=== PATIENT | female | born 1940 | race Caucasian/White ===

== ENCOUNTER → 2018-05-16 | Outpatient (CLI) | payer OTHER ==
[2018-05-16 11:55] LABS: BASOPHILS ABSOLUTE AUTO 0.03 K/mm3 (0.00-0.23); BASOPHILS PERCENT AUTO 0 % (0-2); EOSINOPHILS PERCENT AUTO 0 % (0-6); Hematocrit 40.5 % (33.0-51.0); Hemoglobin 14.1 g/dL (11.5-16.0); IMMATURE GRAN ABSOLUTE AUTO 0.01 K/mm3 (0.00-0.10); IMMATURE GRAN PERCENT AUTO 0 % (0-1); LYMPHOCYTES ABSOLUTE AUTO 1.37 K/mm3 (0.84-5.20); LYMPHOCYTES PERCENT AUTO 19 % (21-46); MONOCYTES ABSOLUTE AUTO 0.65 K/mm3 (0.16-1.47); MONOCYTES PERCENT AUTO 9 % (4-13); Mean Corpuscular HGB 32.2 pg (26.0-34.0); Mean Corpuscular HGB Conc 34.8 g/dL (31.5-36.5); Mean Corpuscular Volume 93 fL (80-100); Mean Platelet Volume 8.2 fL (9.1-12.4); NEUTROPHILS ABSOLUTE AUTO 5.09 K/mm3 (1.96-9.15); NEUTROPHILS PERCENT AUTO 71 % (41-73); Platelet Count 251 K/mm3 (150-400); RDW Coefficient Variation 12.8 % (11.7-14.2); RDW Standard Deviation 43.5 fL (35.1-46.3); Red Blood Cell Count 4.38 M/mm3 (3.80-5.20); White Blood Cell Count 7.15 K/mm3 (4.00-11.30)
[2018-05-16 12:08] LABS: Anion Gap 8 mmol/L (6-16); Blood Urea Nitrogen 13 mg/dL (8-24); Bun/Creatinine Ratio 14.9 (12.0-20.0); CO2, Blood 28 mmol/L (21-32); Calcium, Blood 9.5 mg/dL (8.5-10.1); Chloride, Blood 94 mmol/L (98-108); Creatinine, Blood 0.87 mg/dL (0.40-1.00); Glomerular Filtration Rate >60 (60-); Glucose, Blood 96 mg/dL (70-99); Potassium, Blood 4.2 mmol/L (3.5-5.5); Sodium, Blood 130 mmol/L (136-145)
== END ==
LOC: LAB SHORT 11:52 → LAB EV 11:52
PROVIDERS: Nurse Practitioner
DX: J98.8 Other specified respiratory disorders (principal)
CPT/HCPCS: 80048; 85025

== ENCOUNTER → 2018-07-10 | Outpatient (CLI) | payer OTHER | END | disposition home or self-care (01) | LOC: LAB 07:10 → LAB SHORT 07:10 → LAB FUT 07-08 12:50 → EDSTATUS 07-08 12:50 | DX: R91.8 Other nonspecific abnormal finding of lung field (principal) | CPT/HCPCS: 87070 ==

== ENCOUNTER 2020-07-25 11:33 | Day surgery (SDC) | payer OTHER ==
[~2020-07-25] VITALS: Ht 162.6 cm; Wt 58.2 kg
--- NOTE | 2020-07-25 12:44 | NUR ---
07/25/20 1244 Cornelio Noel History, Chart, Medications and Allergies reviewed before start of procedure.MONITOR INTACT WITH CONTINUOUS PULSE OXIMETRY AND INTERMITTENT BP.3-LEAD EKG REVIEWED WITH PHYSICIAN PRIOR TO START OF PROCEDURE.O2 VIA N/C INTACT THROUGHOUT SEDATION/PROCEDURE. Patient confirms NPO status and agrees with scheduled surgery.
--- NOTE | 2020-07-25 14:15 | NUR ---
TOOK REPORT FROM [facility]. PT WITH NO C/0 PAIN, NAUSEA. NON PRODUCTIVE COUGH. WILL CONTINUE TO MONITOR FOR 4 HOURS ORDERED BY
--- NOTE | 2020-07-25 14:25 | NUR ---
DR. FALCON SPEAKING WITH PT VIA PHONE.
--- NOTE | 2020-07-25 15:56 | NUR ---
SPOKE WITH DR. FALCON AND DUE TO THE PT DOING SO WELL, VITAL SIGNS STABLE, NON PRODUCTIVE COUGH, DR. FALCON OKAYED D/CING THE PT AT THIS TIME.
--- NOTE | 2020-07-25 16:16 | NUR ---
CHEST XRAY TAKEN PRIOR TO DC.
--- NOTE | 2020-07-25 16:17 | NUR ---
Patient up to Ambulate independently. Gait steady. Discharge instructions reviewed with patient. Patient verbalizes understanding. Copy given to patient to take home. Discharged via wheelchair to private car for ride home.
== END 2020-07-25 22:54 | disposition home or self-care (01) ==
LOC: ORSCMMR 11:33 → ORD 12:30 → ORSCMMR 22:54
PROVIDERS: Internal Medicine Pulmonary Disease
PROC: 0B9D8ZX Drainage of Right Middle Lung Lobe, Via Natural or Artificial Opening Endoscopic, Diagnostic (ICD-10-PCS; principal; 2020-07-25 12:30)
DX: R91.8 Other nonspecific abnormal finding of lung field (principal); J47.9 Bronchiectasis, uncomplicated; A31.0 Pulmonary mycobacterial infection; Z87.891 Personal history of nicotine dependence; Z79.899 Other long term (current) drug therapy
CPT/HCPCS: 71045; 87070; 87205; J2001; J2250; J3010; J7120

== ENCOUNTER → 2020-08-17 | Outpatient (CLI) | payer OTHER ==
[2020-08-17 10:35] LABS: Albumin, Blood 3.7 g/dL (3.4-5.0); Bilirubin, Direct 0.1 mg/dL (0.0-0.3); Bilirubin, Indirect 0.3 mg/dL (0.1-0.7); Bilirubin, Total 0.4 mg/dL (0.1-1.0); Globulin, Blood 3.8 g/dL (2.2-4.0); Total Protein, Blood 7.5 g/dL (6.4-8.2)
== END | disposition home or self-care (01) ==
LOC: OLS 08:46 → LAB SHORT 08:46
PROVIDERS: Internal Medicine Infectious Disease
DX: A31.0 Pulmonary mycobacterial infection (principal)
CPT/HCPCS: 36415; 80076

== ENCOUNTER → 2020-10-04 | Outpatient (CLI) | payer OTHER | END | disposition home or self-care (01) | LOC: LAB SHORT 09:11 → LAB 09:11 | DX: A31.0 Pulmonary mycobacterial infection (principal) | CPT/HCPCS: 87015; 87116; 87206 ==

== ENCOUNTER → 2020-11-24 | Outpatient (CLI) | payer OTHER | LOC: LAB 06:00 → LAB SHORT 06:00 | DX: A31.0 Pulmonary mycobacterial infection (principal) | CPT/HCPCS: 87015; 87116; 87206 ==

== ENCOUNTER → 2020-12-22 | Outpatient (CLI) | payer OTHER | END | disposition home or self-care (01) | LOC: LAB SHORT 09:20 | DX: A31.0 Pulmonary mycobacterial infection (principal) | CPT/HCPCS: 87015; 87116; 87206 ==

== ENCOUNTER → 2021-12-13 | Outpatient (CLI) | payer OTHER ==
[2021-12-13 08:28] LABS: Appearance, Urine Hazy (Clear); Bilirubin, Urine Neg (Neg); Blood, Urine 1+ (Neg); Color, Urine Yellow (P-Yellow); Glucose Qualitative, Urine Neg (Normal); Ketones, Urine Neg (Neg); Leukocyte Esterase, Urine Neg (Neg); Nitrite, Urine Neg (Neg); Protein, Urine Trace (Neg); Urobilinogen, Urine NORM (Normal); pH, Urine 6.5 (5.0-8.0)
[2021-12-13 08:29] LABS: Bacteria Rare /hpf; Squamous Epithelial Cells Rare /hpf (Few); White Blood Cells, Urine 0-2 /hpf (0-5)
== END ==
LOC: LAB SHORT 06:00
PROVIDERS: Physician Assistant
DX: R30.0 Dysuria (principal); R30.9 Painful micturition, unspecified
CPT/HCPCS: 81001